=== PATIENT | male | born 1940 | race African-American/Black ===

== ENCOUNTER 2019-11-18 11:49 | Emergency (ER) | payer MEDICARE, OTHER ==
[~2019-11-18] VITALS: Ht 190.5 cm; Wt 85.0 kg
[~2019-11-18 11:49] MED LIST: ASPI-1497 PO; OLME20TA13 PO; TAMS-11 PO
[2019-11-18] MEDS ORDERED: METOCLOPRAMIDE HCL 10MG/2ML VIAL IV ONE (14:30)
[2019-11-18] MEDS ORDERED: DILTIAZEM HCL 5MG/ML 5ML VIAL IV ONE (15:00)
[2019-11-18 15:17] LABS: HEMATOCRIT. 40.4 % (42.0-52.0); HEMOGLOBIN. 13.5 g/dL (14.0-18.0); MEAN CORPUSCULAR HEMOGLOBIN 33.1 pg (28.0-32.0); MEAN CORPUSCULAR VOLUME 98.9 fL (80.0-94.0); MEAN PLATELET VOLUME 9.3 fl (7.4-10.4); PLATELET 236 x1000/uL (130-400); RED BLOOD CELL COUNT 4.09 mill/uL (4.7-6.1); RED CELL DISTRIBUTION WIDTH 14.9 % (11.6-14.6)
[2019-11-18 15:23] LABS: CHLORIDE 95 mEq/L (98-107)
[2019-11-18 16:32] LABS: PLATELET ESTIMATE NORMAL
[2019-11-18 17:20] LABS: PROTHROMBIN TIME 10.5 sec (9.6-11.0)
[2019-11-18 19:10] VITALS: BP 130/65
[2019-11-19] MEDS ORDERED: LOSA1TAB40 PO (22:32)
[2019-11-19] MEDS ORDERED: RIVA20TA PO (22:32)
[2019-11-19] MEDS ORDERED: CARV3.1242 PO (22:32)
[2019-11-19] MEDS ORDERED: SIMV-43 PO (22:32)
== END 2019-11-18 19:22 | disposition left against medical advice (07) ==
LOC: ER 12:02 → EDBEDREQTM 18:17 → EDBEDREQ 18:17 → ER 19:22 → CANBEDREQ 19:41
DX: I48.20 Chronic atrial fibrillation, unspecified (principal); N17.9 Acute kidney failure, unspecified; K92.1 Melena; R11.0 Nausea; R05 Cough; R06.6 Hiccough; Z71.89 Other specified counseling; Z79.01 Long term (current) use of anticoagulants; Z79.82 Long term (current) use of aspirin; Z79.84 Long term (current) use of oral hypoglycemic drugs
CPT/HCPCS: 36415; 71045; 80053; 83880; 84484; 85025; 85610; 85730; 93005; 96374; 96375; 99285; J2765; J3490

== ENCOUNTER 2019-11-19 13:59 | Inpatient (IN) | payer MEDICARE, OTHER ==
[~2019-11-19] VITALS: Ht 190.5 cm; Wt 84.4 kg
[2019-11-19] MEDS ORDERED: SODIUM CHLORIDE 0.9% 1,000 ML IV ONE (16:24)
[2019-11-19 17:01] LABS: HEMATOCRIT. 36.8 % (42.0-52.0); HEMOGLOBIN. 12.3 g/dL (14.0-18.0); MEAN CORPUSCULAR HEMOGLOBIN 32.8 pg (28.0-32.0); MEAN CORPUSCULAR VOLUME 98.6 fL (80.0-94.0); PLATELET 207 x1000/uL (130-400); RED BLOOD CELL COUNT 3.74 mill/uL (4.7-6.1); RED CELL DISTRIBUTION WIDTH 14.8 % (11.6-14.6)
[2019-11-19 17:08] LABS: CHLORIDE 94 mEq/L (98-107)
[2019-11-19 17:15] LABS: PHOSPHORUS 5.4 mg/dL (2.5-4.9)
[2019-11-19 18:20] LABS: PLATELET ESTIMATE NORMAL
[2019-11-19] MEDS ORDERED: SODIUM CHLORIDE 0.9% 1,000 ML IV SCH (19:49)
[2019-11-19] MEDS ORDERED: ONDANSETRON HCL 4MG/2ML INJ IV PRN (20:00)
[2019-11-19 21:30] VITALS: BP 81/54
[2019-11-19 21:35] VITALS: BP 81/54
[2019-11-19 22:00] VITALS: BP 107/52
[2019-11-19] MEDS: SODIUM BICARBONATE 50 MEQ in SODIUM CHLORIDE 0.45% 1,000 ML IV SCH (22:00)
[2019-11-19] MEDS ORDERED: SIMV-43 PO (22:32)
[2019-11-19] MEDS ORDERED: LOSA1TAB40 PO (22:32)
[2019-11-19] MEDS ORDERED: CARV3.1242 PO (22:32)
[2019-11-19] MEDS ORDERED: RIVA20TA PO (22:32)
[2019-11-20] VITALS (12 sets, daily range): BP systolic 86–153; BP diastolic 42–61
[2019-11-20 06:28] LABS: HEMATOCRIT. 31.2 % (42.0-52.0); HEMOGLOBIN. 10.7 g/dL (14.0-18.0); MEAN CORPUSCULAR VOLUME 96.6 fL (80.0-94.0); MEAN PLATELET VOLUME 9.5 fl (7.4-10.4); PLATELET 168 x1000/uL (130-400); RED BLOOD CELL COUNT 3.23 mill/uL (4.7-6.1); RED CELL DISTRIBUTION WIDTH 14.9 % (11.6-14.6)
[2019-11-20 08:02] LABS: CHLORIDE 98 mEq/L (98-107)
[2019-11-20 08:09] LABS: T4 FREE 1.22 ng/dL (0.76-1.46)
[2019-11-20 09:23] LABS: PLATELET ESTIMATE NORMAL
[2019-11-20 09:27] LABS: CLARITY URINE CLOUDY (CLEAR); COLOR URINE YELLOW (YELLOW); KETONES URINE NEGATIVE (NEGATIVE); LEUKOCYTE ESTERASE URINE NEGATIVE (NEGATIVE); NITRITE URINE NEGATIVE (NEGATIVE); OCCULT BLOOD URINE NEGATIVE (NEGATIVE); PH URINE 5.5 (4.5-8.0); PROTEIN URINE TRACE (NEGATIVE); SPECIFIC GRAVITY URINE 1.016 (1.005-1.030); UROBILINOGEN URINE 0.2 E.U./dL (0.2-1.0)
[2019-11-20 10:59] LABS: BG CARBOXYHEMOGLOBIN 0.3 % (0.5-1.5); BG DEOXYHEMOGLOBIN 4.2 % (0.0-5.0); BG FRACTION INSPIRED OXYGEN 21; BG HCO3 ACT 18.2 mmol/L (22.0-26.0); BG METHEMOGLOBIN 0.1 % (0.0-1.5); BG OXYGEN SATURATION 95.8 % (92.0-98.5); BG OXYHEMOGLOBIN 95.4 % (94.0-97.0); BG PCO2 28.5 mmHg (35.0-45.0); BG PH 7.424 (7.350-7.450); BG PO2 84.1 mmHg (75.0-100.0); BG SAMPLE SITE RIGHT RADIAL; BG TOTAL HEMOGLOBIN 11.5 g/dL (12.0-18.0); BG VENT MODE ROOM AIR
[2019-11-20] MEDS: SODIUM BICARBONATE 50 MEQ in SODIUM CHLORIDE 0.45% 1,000 ML IV SCH (11:48)
[2019-11-20 12:09] LABS: CREATINE KINASE 157 IU/L (39-308)
[2019-11-20] MEDS ORDERED: ENOXAPARIN 40MG/0.4ML SYR SUBCUT NR (16:00)
[2019-11-20] MEDS ORDERED: DIGOXIN 500MCG/2ML AMP IV NR (16:15)
[2019-11-20] MEDS: PROPRANOLOL HCL 10MG TABLET PO SCH (21:29)
[2019-11-20] MEDS: PANTOPRAZOLE SODIUM 40 MG/VIAL IV SCH (21:33)
[2019-11-21] VITALS (11 sets, daily range): BP systolic 86–109; BP diastolic 42–60
[2019-11-21] MEDS: SODIUM BICARBONATE 50 MEQ in SODIUM CHLORIDE 0.45% 1,000 ML IV SCH (02:48)
[2019-11-21] MEDS: PROPRANOLOL HCL 10MG TABLET PO SCH ×3 (06:00→22:13)
[2019-11-21 07:23] LABS: HEMOGLOBIN. 10.8 g/dL (14.0-18.0); MEAN CORPUSCULAR HEMOGLOBIN 33.8 pg (28.0-32.0); MEAN CORPUSCULAR VOLUME 97.2 fL (80.0-94.0); MEAN PLATELET VOLUME 9.5 fl (7.4-10.4); PLATELET 152 x1000/uL (130-400); RED BLOOD CELL COUNT 3.19 mill/uL (4.7-6.1); RED CELL DISTRIBUTION WIDTH 14.8 % (11.6-14.6)
[2019-11-21 07:58] LABS: PARTIAL THROMBOPLASTIN TIME 35.6 sec (23.4-31.0); PROTHROMBIN TIME 11.3 sec (9.6-11.0)
[2019-11-21] MEDS: PANTOPRAZOLE SODIUM 40 MG/VIAL IV SCH ×2 (08:41→22:13)
[2019-11-21] MEDS ORDERED: BACTERIOSTATIC SODIUM CHLORIDE 0.9% 30ML VIAL IJ ONE (09:45)
[2019-11-21 11:01] LABS: CHLORIDE 103 mEq/L (98-107)
[2019-11-21 13:02] LABS: PLATELET ESTIMATE NORMAL
[2019-11-21] MEDS ORDERED: MIDAZOLAM HCL 5 MG/5 ML VIAL ONE (14:44)
[2019-11-21] MEDS ORDERED: FENTANYL CITRATE/PF 50MCG/ML 2ML VIAL ONE (14:45)
[2019-11-21] MEDS ORDERED: MIDAZOLAM HCL 5 MG/5 ML VIAL IV NR (14:46)
[2019-11-21] MEDS ORDERED: DIAZEPAM 5 MG/ML 2ML CPJ IV NR (14:57)
[2019-11-21] MEDS ORDERED: DIAZEPAM 5 MG/ML 2ML CPJ ONE (14:58)
[2019-11-21] MEDS: AMIODARONE HCL 200 MG TABLET PO SCH ×2 (18:02→22:13)
[2019-11-21] MEDS: SODIUM CHLORIDE 0.45% 1,000 ML IV SCH (18:02)
[2019-11-22] VITALS (14 sets, daily range): BP systolic 89–152; BP diastolic 35–98
[2019-11-22] MEDS: AMIODARONE HCL 200 MG TABLET PO SCH ×3 (06:16→22:17)
[2019-11-22] MEDS: PROPRANOLOL HCL 10MG TABLET PO SCH ×3 (06:17→22:17)
[2019-11-22] MEDS: SODIUM CHLORIDE 0.45% 1,000 ML IV SCH ×2 (06:24→19:45)
[2019-11-22 06:52] LABS: HEMATOCRIT. 28.5 % (42.0-52.0); HEMOGLOBIN. 9.6 g/dL (14.0-18.0); MEAN CORPUSCULAR HEMOGLOBIN 33.1 pg (28.0-32.0); MEAN PLATELET VOLUME 9.4 fl (7.4-10.4); PLATELET 144 x1000/uL (130-400); RED BLOOD CELL COUNT 2.91 mill/uL (4.7-6.1); RED CELL DISTRIBUTION WIDTH 15.2 % (11.6-14.6)
[2019-11-22 10:13] LABS: PLATELET ESTIMATE NORMAL
[2019-11-22] MEDS: PANTOPRAZOLE SODIUM 40 MG/VIAL IV SCH (10:18)
[2019-11-22] MEDS: SUCRALFATE 1 G/10 ML UDC PO SCH ×2 (12:55→18:37)
[2019-11-22 15:10] LABS: ANTI-NUCLEAR ANTIBODIES DIRECT Negative (Negative)
[2019-11-22] MEDS: PANTOPRAZOLE 40MG DR TABLET PO SCH (20:29)
[2019-11-23] VITALS (9 sets, daily range): BP systolic 105–146; BP diastolic 54–98
[2019-11-23] MEDS: SUCRALFATE 1 G/10 ML UDC PO SCH ×3 (00:21→12:00)
[2019-11-23] MEDS: PROPRANOLOL HCL 10MG TABLET PO SCH (06:11)
[2019-11-23] MEDS: PANTOPRAZOLE 40MG DR TABLET PO SCH (06:11)
[2019-11-23] MEDS: AMIODARONE HCL 200 MG TABLET PO SCH (06:11)
[2019-11-23] MEDS: SODIUM CHLORIDE 0.45% 1,000 ML IV SCH (10:43)
[2019-11-23] MEDS ORDERED: PROP10TA10 GT (12:57)
[2019-11-23] MEDS ORDERED: AMIO100T4 PO (12:57)
== END 2019-11-23 15:50 | disposition home or self-care (01) | DRG 377 ==
LOC: ER 13:59 → 3WST 19:36 → EDBEDREQTM 19:40 → EDBEDREQSVC 19:40 → EDBEDREQ 19:40 → ENRESERV 19:46 → 3WST 21:32
PROVIDERS: ADMIT Specialist; ATTEND Specialist
PROC: 0DB78ZX Excision of Stomach, Pylorus, Via Natural or Artificial Opening Endoscopic, Diagnostic (ICD-10-PCS; principal; 2019-11-21)
DX: K26.4 Chronic or unspecified duodenal ulcer with hemorrhage (principal); N17.0 Acute kidney failure with tubular necrosis; I50.22 Chronic systolic (congestive) heart failure; E44.0 Moderate protein-calorie malnutrition; I48.20 Chronic atrial fibrillation, unspecified; I42.9 Cardiomyopathy, unspecified; E87.1 Hypo-osmolality and hyponatremia; D62 Acute posthemorrhagic anemia; K22.10 Ulcer of esophagus without bleeding; I13.0 Hypertensive heart and chronic kidney disease with heart failure and stage 1 through stage 4 chronic kidney disease, or unspecified chronic kidney disease; E78.5 Hyperlipidemia, unspecified; E86.9 Volume depletion, unspecified; I95.9 Hypotension, unspecified; F17.290 Nicotine dependence, other tobacco product, uncomplicated; K22.2 Esophageal obstruction; K44.9 Diaphragmatic hernia without obstruction or gangrene; R00.0 Tachycardia, unspecified; K52.9 Noninfective gastroenteritis and colitis, unspecified; N40.0 Benign prostatic hyperplasia without lower urinary tract symptoms; N18.9 Chronic kidney disease, unspecified; Z96.659 Presence of unspecified artificial knee joint; Z90.49 Acquired absence of other specified parts of digestive tract; I25.2 Old myocardial infarction; Z82.49 Family history of ischemic heart disease and other diseases of the circulatory system; Z79.01 Long term (current) use of anticoagulants; Z68.23 Body mass index [BMI] 23.0-23.9, adult; Z79.899 Other long term (current) drug therapy; Z79.82 Long term (current) use of aspirin; Z71.6 Tobacco abuse counseling; K29.70 Gastritis, unspecified, without bleeding; K29.80 Duodenitis without bleeding
CPT/HCPCS: 36415; 36600; 71045; 76700; 80048; 80053; 80076; 81003; 82375; 82550; 82570; 82805; 83735; 83880; 84100; 84156; 84439; 84443; 84484; 85025; 86038; 86160; 87493; 88305; 88312; 88313; 93005; 93306; 99291; C9113; J1160; J1650; J2250; J2405; J3010; J3490; J7030

== ENCOUNTER 2023-06-17 10:00 | Emergency (ER) | payer OTHER ==
[~2023-06-17] VITALS: Ht 190.5 cm; Wt 89.0 kg
[~2023-06-17 10:00] MED LIST changes: +CARV3.1242 PO; +LOSA1TAB40 PO; +RIVA20TA PO; +SIMV-43 PO
[2023-06-17 10:09] VITALS: O2SAT 99
[2023-06-17] MEDS ORDERED: ONDANSETRON 4MG ODT PO STA (10:10)
[2023-06-17] MEDS ORDERED: MORPHINE SULFATE 4 MG/ML CPJ (NOT FOR IM USE) IV STA (10:10)
[2023-06-17] MEDS ORDERED: SODIUM CHLORIDE 0.9% 1,000 ML IV ONE (10:15)
[2023-06-17 11:03] LABS: BASOPHILS % 0.8 % (0.0-2.0); EOSINOPHILS % 0.1 % (0.0-5.0); HEMATOCRIT. 44.2 % (42.0-52.0); HEMOGLOBIN. 14.5 g/dL (14.0-18.0); LYMPHOCYTES % 21.1 % (20.0-50.0); MEAN CORPUSCULAR HEMOGLOBIN 31.1 pg (28.0-32.0); MEAN CORPUSCULAR HGB CONC 32.8 g/dL (31.0-37.0); MEAN CORPUSCULAR VOLUME 94.9 fL (80.0-94.0); MEAN PLATELET VOLUME 9.1 fl (7.4-10.4); MONOCYTES % 12.7 % (2.0-8.0); NEUTROPHILS % 65.3 % (40.0-76.0); PLATELET 288 x1000/uL (130-400); RED BLOOD CELL COUNT 4.66 mill/uL (4.7-6.1); WHITE BLOOD COUNT 7.6 x1000/uL (4.5-11.0)
[2023-06-17 11:12] LABS: PROTHROMBIN TIME 10.6 sec (9.6-11.0)
[2023-06-17 11:25] LABS: INDEX HEMOLYSI 1 (1-3); INDEX ICTERIC 1 (1-4); INDEX LIPEMIC 1 (1-3)
[2023-06-17 11:35] LABS: ALANINE AMINOTRANSFERASE 22 IU/L (13-61); ALBUMIN 4.2 g/dL (3.4-5.0); ASPARTATE AMINOTRANSFERASE 25 IU/L (15-37); BILIRUBIN TOTAL 0.9 mg/dL (0.1-1.0); CALCIUM 8.9 mg/dL (8.5-10.1); CARBON DIOXIDE 24 mEq/L (21-32); CHLORIDE 100 mEq/L (98-107); CREATININE 3.2 mg/dL (0.6-1.3); GLUCOSE 125 mg/dL (70-105); PROTEIN TOTAL 9.3 g/dL (6.0-8.3); SODIUM 131 mEq/L (136-145); TROPONIN I HIGH SENSITIVITY 18 ng/L (<78); UREA NITROGEN BLOOD 65 mg/dL (7-21)
[2023-06-17] MEDS ORDERED: ONDANSETRON 4MG ODT PO NR (13:41)
[2023-06-17] MEDS ORDERED: ONDA4TAB50 PO (13:46)
[2023-06-17 17:00] VITALS: BP 140/74; PULSE 65; RESP 20; TEMP 97.8
== END 2023-06-17 17:05 | disposition home or self-care (01) ==
LOC: ER 10:26
DX: R10.9 Unspecified abdominal pain (principal); I48.91 Unspecified atrial fibrillation; E78.00 Pure hypercholesterolemia, unspecified; I10 Essential (primary) hypertension; Z79.899 Other long term (current) drug therapy
CPT/HCPCS: 99284; 74176; 80053; 83690; 85025; 85610; 84484; 36415; 93005; Q0162; J7030

== ENCOUNTER 2025-08-24 13:09 | Inpatient (IN) | payer BC, MEDICARE ==
[~2025-08-24] VITALS: Ht 182.9 cm; Wt 88.9 kg
[~2025-08-24 13:09] MED LIST changes: +ONDA4TAB50 PO; -TAMS-11 PO; +TAMS-54 PO
[2025-08-24 13:18] VITALS: O2SAT 97
[2025-08-24 14:23] LABS: BASOPHILS % 0.3 % (0.0-2.0); EOSINOPHILS % 0.3 % (0.0-5.0); HEMATOCRIT. 37.6 % (42.0-52.0); HEMOGLOBIN. 12.6 g/dL (14.0-18.0); LYMPHOCYTES % 10.6 % (20.0-50.0); MEAN PLATELET VOLUME 9.0 fl (7.4-10.4); MONOCYTES % 9.2 % (2.0-8.0); NEUTROPHILS % 79.6 % (40.0-76.0); PLATELET 320 x1000/uL (130-400); RED BLOOD CELL COUNT 3.98 mill/uL (4.7-6.1); RED CELL DISTRIBUTION WIDTH 13.4 % (11.6-14.6)
[2025-08-24] MEDS: SODIUM CHLORIDE 0.9% 1,000 ML IV ONE (14:28)
[2025-08-24 14:49] LABS: INR 1.0
[2025-08-24 14:50] LABS: CREATININE 2.8 mg/dL (0.6-1.3); UREA NITROGEN BLOOD 87 mg/dL (9-23)
[2025-08-24 14:51] LABS: PROTEIN TOTAL 7.3 g/dL (6.0-8.3)
[2025-08-24 14:52] LABS: ASPARTATE AMINOTRANSFERASE 9 IU/L (<34); BILIRUBIN DIRECT 0.3 mg/dL (<=3.0); BILIRUBIN TOTAL 0.9 mg/dL (0.1-1.0); TROPONIN I HIGH SENSITIVITY 11 ng/L (3.0-53)
[2025-08-24 16:00] LABS: INFLUENZA TYPE A Presumptive Negative (Pres. Neg.)
[2025-08-24 16:01] LABS: INFLUENZA TYPE B Presumptive Negative (Pres. Neg.); RESPIRATORY SYNCYTIAL VIRUS Not Detected (Not Detectd)
[2025-08-24 16:19] LABS: TROPONIN I HIGH SENSITIVITY 11 ng/L (3.0-53)
[2025-08-24] MEDS: CALCIUM CHLORIDE 1GM/10ML SYR IV ONE (17:09)
[2025-08-24] MEDS: DEXTROSE 50% WATER 50ML SYRINGE IV ONE (17:20)
[2025-08-24] MEDS: INSULIN REGULAR (HUMULIN R) 1000UNITS/10ML VIAL IV ONE (17:21)
[2025-08-24] MEDS ORDERED: ACETAMINOPHEN 325MG TABLET PO PRN (17:30)
[2025-08-24] MEDS ORDERED: ONDANSETRON HCL 4MG/2ML INJ IV PRN (17:30)
[2025-08-24] MEDS ORDERED: SODIUM CHLORIDE 0.45% 1,000 ML IV SCH (17:30)
[2025-08-24] MEDS ORDERED: HYDROCODONE/ACETAMINOPHEN 5/325MG TABLET PO PRN (17:30)
[2025-08-24 17:50] VITALS: BP 106/63; PULSE 95; RESP 22; TEMP 37.2; O2SAT 100
[2025-08-24 17:51] LABS: CLARITY URINE CLEAR (CLEAR); COLOR URINE YELLOW (YELLOW); GLUCOSE URINE NEGATIVE (NEGATIVE); KETONES URINE NEGATIVE (NEGATIVE); LEUKOCYTE ESTERASE URINE NEGATIVE (NEGATIVE); NITRITE URINE NEGATIVE (NEGATIVE); OCCULT BLOOD URINE NEGATIVE (NEGATIVE); PH URINE 5.5 (4.5-8.0); PROTEIN URINE NEGATIVE (NEGATIVE); SPECIFIC GRAVITY URINE 1.017 (1.005-1.030); UROBILINOGEN URINE 0.2 E.U./dL (0.2-1.0)
[2025-08-24 20:00] VITALS: BP 120/58; PULSE 79; RESP 18; TEMP 36.1; O2SAT 100
[2025-08-24] MEDS: ASPIRIN 81MG EC TABLET PO SCH (20:11)
[2025-08-24] MEDS: ENOXAPARIN 30MG/0.3ML SYR SUBCUT SCH (22:19)
[2025-08-25] VITALS: BP 123/59; PULSE 78; RESP 18; TEMP 36.2; O2SAT 99
[2025-08-25 00:54] LABS: CREATINE KINASE MB FRACTION 0.9 ng/mL (0.5-3.6)
[2025-08-25 01:00] LABS: TROPONIN I HIGH SENSITIVITY 13 ng/L (3.0-53)
[2025-08-25 04:00] VITALS: BP 120/63; PULSE 80; RESP 18; TEMP 36.4; O2SAT 99
[2025-08-25 04:38] VITALS: BP 124/61; PULSE 80; RESP 16; TEMP 36.3624
[2025-08-25 06:28] LABS: BASOPHILS % 0.6 % (0.0-2.0); EOSINOPHILS % 1.9 % (0.0-5.0); HEMATOCRIT. 39.3 % (42.0-52.0); HEMOGLOBIN. 12.8 g/dL (14.0-18.0); LYMPHOCYTES % 23.8 % (20.0-50.0); MEAN PLATELET VOLUME 9.6 fl (7.4-10.4); MONOCYTES % 10.2 % (2.0-8.0); NEUTROPHILS % 63.5 % (40.0-76.0); PLATELET 312 x1000/uL (130-400); RED BLOOD CELL COUNT 4.15 mill/uL (4.7-6.1); RED CELL DISTRIBUTION WIDTH 13.1 % (11.6-14.6)
[2025-08-25 06:53] LABS: CREATINE KINASE MB FRACTION < 0.5 ng/mL (0.5-3.6)
[2025-08-25 06:56] LABS: TROPONIN I HIGH SENSITIVITY 13 ng/L (3.0-53)
[2025-08-25 06:58] LABS: CREATININE 2.2 mg/dL (0.6-1.3)
[2025-08-25 06:59] LABS: UREA NITROGEN BLOOD 65.0 mg/dL (9-23)
[2025-08-25 08:00] VITALS: BP 110/70; PULSE 80; RESP 18; TEMP 36.7; O2SAT 100
[2025-08-25] MEDS: TAMSULOSIN HCL 0.4MG SR CAPSULE PO SCH (09:29)
[2025-08-25 12:00] VITALS: BP 130/80; PULSE 78; RESP 18; TEMP 37; O2SAT 100
[2025-08-25 16:57] VITALS: BP 130/75; PULSE 80; RESP 16; TEMP 98
[2025-08-25] MEDS ORDERED: RIVAROXABAN 15 MG TABLET PO SCH (17:00)
[2025-09-13] MEDS ORDERED: PANT40SU MT (11:48)
[2025-09-13] MEDS ORDERED: SUCR1TAB PO (11:48)
== END 2025-08-25 18:07 | disposition home or self-care (01) | DRG 392 ==
LOC: ER 13:09 → 8WST 16:46 → EDBEDREQTM 16:52 → EDBEDREQ 16:52 → ENRESERV 17:05 → CANRESERV 17:05 → ENRESERV 17:13
PROVIDERS: ADMIT Internal Medicine; ATTEND Internal Medicine
DX: K52.9 Noninfective gastroenteritis and colitis, unspecified (principal); I13.0 Hypertensive heart and chronic kidney disease with heart failure and stage 1 through stage 4 chronic kidney disease, or unspecified chronic kidney disease; N17.9 Acute kidney failure, unspecified; E86.0 Dehydration; I48.0 Paroxysmal atrial fibrillation; E78.00 Pure hypercholesterolemia, unspecified; Z79.01 Long term (current) use of anticoagulants; N18.32 Chronic kidney disease, stage 3b; N40.0 Benign prostatic hyperplasia without lower urinary tract symptoms; E87.5 Hyperkalemia; I25.10 Atherosclerotic heart disease of native coronary artery without angina pectoris; Z96.659 Presence of unspecified artificial knee joint; Z79.82 Long term (current) use of aspirin; Z79.899 Other long term (current) drug therapy; I10 Essential (primary) hypertension
CPT/HCPCS: 36415; 71045; 76770; 80048; 80076; 81003; 82550; 82553; 82962; 83880; 84484; 85025; 87420; 87804; 93005; 99291; A4606; J1650; J1815; J3490; J7030

== ENCOUNTER 2025-09-08 05:57 | Inpatient (IN) | payer BC, MEDICARE ==
[~2025-09-08] VITALS: Ht 188 cm; Wt 89.0 kg
[~2025-09-08 05:57] MED LIST changes: -LOSA1TAB40 PO; -OLME20TA13 PO; -ONDA4TAB50 PO
[2025-09-08 06:13] VITALS: O2SAT 98
[2025-09-08] MEDS: SODIUM CHLORIDE 0.9% (SEPSIS BOLUS) IV ONE (06:38)
[2025-09-08] MEDS: PIPERACILLIN/TAZO 3.375G/50ML 50 ML IV ONE (06:40)
[2025-09-08 06:52] LABS: BASOPHILS % 0.5 % (0.0-2.0); EOSINOPHILS % 0.1 % (0.0-5.0); HEMATOCRIT. 32.8 % (42.0-52.0); HEMOGLOBIN. 10.7 g/dL (14.0-18.0); LYMPHOCYTES % 9.7 % (20.0-50.0); MEAN PLATELET VOLUME 8.4 fl (7.4-10.4); MONOCYTES % 6.7 % (2.0-8.0); NEUTROPHILS % 83.0 % (40.0-76.0); PLATELET 289 x1000/uL (130-400); RED BLOOD CELL COUNT 3.41 mill/uL (4.7-6.1); RED CELL DISTRIBUTION WIDTH 13.7 % (11.6-14.6)
[2025-09-08 07:10] LABS: UREA NITROGEN BLOOD 87 mg/dL (9-23)
[2025-09-08 07:11] LABS: PROTEIN TOTAL 7.2 g/dL (6.0-8.3)
[2025-09-08 07:12] LABS: ASPARTATE AMINOTRANSFERASE 10 IU/L (<34); BILIRUBIN DIRECT 0.1 mg/dL (<=3.0); BILIRUBIN TOTAL 0.5 mg/dL (0.1-1.0)
[2025-09-08 07:13] LABS: CREATININE 6.5 mg/dL (0.6-1.3)
[2025-09-08] MEDS: VANCOMYCIN 1G PREMIX 200 ML IV ONE (07:19)
[2025-09-08] MEDS: SODIUM CHLORIDE 0.9% 1,000 ML IV ONE (07:25)
[2025-09-08 07:34] LABS: INR 1.0
[2025-09-08] MEDS ORDERED: IPRATROPIUM/ALBUTEROL 0.5-3(2.5)MG/3ML NEB NEB PRN (09:30)
[2025-09-08] MEDS ORDERED: DOCUSATE SODIUM 100MG CAPSULE PO PRN (09:30)
[2025-09-08] MEDS ORDERED: ACETAMINOPHEN 325MG TABLET PO PRN ×2 (09:30)
[2025-09-08 09:56] VITALS: BP 141/60; PULSE 86; RESP 14; TEMP 36.5292
[2025-09-08] MEDS: DEXT 5%/0.9% NACL 1,000 ML IV SCH (11:41)
[2025-09-08 12:00] VITALS: BP 111/56; PULSE 86; RESP 21; TEMP 36.5; O2SAT 97
[2025-09-08 16:00] VITALS: BP_SYST 107; BP_SYST 108; BP_DIAS 49; BP_DIAS 9; PULSE 78; PULSE 85; RESP 15; RESP 18; TEMP 36.6; TEMP 36.7; O2SAT 98; O2SAT 99
[2025-09-08 16:44] LABS: CLARITY URINE CLOUDY (CLEAR); COLOR URINE YELLOW (YELLOW); GLUCOSE URINE NEGATIVE (NEGATIVE); KETONES URINE NEGATIVE (NEGATIVE); LEUKOCYTE ESTERASE URINE NEGATIVE (NEGATIVE); NITRITE URINE NEGATIVE (NEGATIVE); OCCULT BLOOD URINE TRACE (NEGATIVE); PH URINE 5.0 (4.5-8.0); PROTEIN URINE 1+ (NEGATIVE); SPECIFIC GRAVITY URINE 1.015 (1.005-1.030); UROBILINOGEN URINE 0.2 E.U./dL (0.2-1.0)
[2025-09-08 16:57] LABS: SQUAMOUS EPITHELIAL CELL URINE 2+ /lpf (RARE/1+)
[2025-09-08 16:58] LABS: BACTERIA URINE 2+
[2025-09-08] MEDS ORDERED: CHLORPROMAZINE HCL 25 MG TABLET PO PRN (18:45)
[2025-09-08] MEDS: ONDANSETRON HCL 4MG/2ML INJ IV PRN (19:34)
[2025-09-08 20:00] VITALS: BP 157/78; PULSE 96; RESP 16; TEMP 36.4; O2SAT 99
[2025-09-08] MEDS ORDERED: AMLO5TAB88 PO (20:36)
[2025-09-08] MEDS ORDERED: HYDR12.54 PO (20:36)
[2025-09-08] MEDS ORDERED: PROP10TA10 PO (20:36)
[2025-09-08] MEDS ORDERED: LOSA50TA41 MT (20:36)
[2025-09-08] MEDS: APIXABAN 2.5 MG TABLET PO SCH (22:16)
[2025-09-09] VITALS (7 sets, daily range): BP systolic 103–144; BP diastolic 61–120; PULSE 94–108; RESP 15–20; TEMP 36.2–37; O2SAT 97–100
[2025-09-09] MEDS: TAMSULOSIN HCL 0.4MG SR CAPSULE PO SCH (09:00)
[2025-09-09] MEDS ORDERED: RIVAROXABAN 20 MG TABLET PO SCH (09:00)
[2025-09-09] MEDS: ASPIRIN 81MG EC TABLET PO SCH (09:00)
[2025-09-09] MEDS ORDERED: METOCLOPRAMIDE HCL 5MG TABLET PO PRN (10:15)
[2025-09-09] MEDS: CEFTRIAXONE 1GM/50ML 50 ML IV SCH (11:46)
[2025-09-09 13:51] LABS: BASOPHILS % 0.2 % (0.0-2.0); EOSINOPHILS % 0.0 % (0.0-5.0); HEMATOCRIT. 23.7 % (42.0-52.0); HEMOGLOBIN. 7.8 g/dL (14.0-18.0); LYMPHOCYTES % 11.0 % (20.0-50.0); MEAN PLATELET VOLUME 9.2 fl (7.4-10.4); MONOCYTES % 10.8 % (2.0-8.0); NEUTROPHILS % 78.0 % (40.0-76.0); PLATELET 223 x1000/uL (130-400); RED BLOOD CELL COUNT 2.49 mill/uL (4.7-6.1); RED CELL DISTRIBUTION WIDTH 13.4 % (11.6-14.6)
[2025-09-09 14:16] LABS: UREA NITROGEN BLOOD 87.0 mg/dL (9-23)
[2025-09-09 14:22] LABS: CREATININE 2.5 mg/dL (0.6-1.3); T4 FREE 1.23 ng/dL (0.89-1.76)
[2025-09-10] VITALS (10 sets, daily range): BP systolic 117–143; BP diastolic 49–73; PULSE 92–103; RESP 13–30; TEMP 36.3–37.00296; O2SAT 95–100
[2025-09-10] MEDS: DEXT 5%/0.45% NACL 1000ML 1,000 ML IV SCH (12:58)
[2025-09-10] MEDS: PANTOPRAZOLE SODIUM 40 MG/VIAL IV SCH (12:58)
[2025-09-10 15:15] LABS: BASOPHILS % 0.1 % (0.0-2.0); EOSINOPHILS % 0.1 % (0.0-5.0); LYMPHOCYTES % 13.9 % (20.0-50.0); MEAN PLATELET VOLUME 8.7 fl (7.4-10.4); MONOCYTES % 10.3 % (2.0-8.0); NEUTROPHILS % 75.6 % (40.0-76.0); PLATELET 198 x1000/uL (130-400); RED BLOOD CELL COUNT 1.87 mill/uL (4.7-6.1); RED CELL DISTRIBUTION WIDTH 13.8 % (11.6-14.6)
[2025-09-10 15:22] LABS: CREATININE 2.0 mg/dL (0.6-1.3)
[2025-09-10 15:23] LABS: HEMOGLOBIN. 5.9 g/dL (14.0-18.0); UREA NITROGEN BLOOD 83.0 mg/dL (9-23)
[2025-09-10 15:24] LABS: HEMATOCRIT. 18.3 % (42.0-52.0)
[2025-09-10 15:30] LABS: FOLIC ACID (FOLATE) SERUM 5.15 ng/mL (>5.38); VITAMIN B12 SERUM 380 pg/mL (211-911)
[2025-09-10] MEDS: SUCRALFATE 1G TABLET PO SCH (18:36)
[2025-09-11] VITALS (15 sets, daily range): BP systolic 120–151; BP diastolic 54–104; PULSE 78–101; RESP 14–22; TEMP 36.2–37.00296; O2SAT 99–100
[2025-09-11 07:19] LABS: HEMATOCRIT. 26.5 % (42.0-52.0); HEMOGLOBIN. 8.8 g/dL (14.0-18.0); MEAN PLATELET VOLUME 8.5 fl (7.4-10.4); PLATELET 180 x1000/uL (130-400); RED BLOOD CELL COUNT 2.88 mill/uL (4.7-6.1); RED CELL DISTRIBUTION WIDTH 15.4 % (11.6-14.6)
[2025-09-11 07:22] LABS: CREATININE 1.6 mg/dL (0.6-1.3)
[2025-09-11 07:23] LABS: UREA NITROGEN BLOOD 64.0 mg/dL (9-23)
[2025-09-11] MEDS: FOLIC ACID/VITAMIN B COMP W-C TABLET PO SCH (08:29)
[2025-09-11 16:36] LABS: EOSINOPHILS % MANUAL 1.0 % (0.0-5.0); LYMPHOCYTES % MANUAL 16.0 % (20.0-50.0); MONOCYTES % MANUAL 17.0 % (2.0-8.0); NEUTROPHILS % MANUAL 66.0 % (45.0-75.0); NUCLEATED RED BLOOD CELLS 2 /100 WBC; PLATELET ESTIMATE NORMAL
[2025-09-12 00:02] VITALS: BP 138/55; PULSE 100; RESP 18; TEMP 36.2; O2SAT 100
[2025-09-12 03:35] LABS: BASOPHILS % 0.1 % (0.0-2.0); EOSINOPHILS % 1.4 % (0.0-5.0); HEMATOCRIT. 23.0 % (42.0-52.0); HEMOGLOBIN. 7.5 g/dL (14.0-18.0); LYMPHOCYTES % 20.0 % (20.0-50.0); MEAN PLATELET VOLUME 7.7 fl (7.4-10.4); MONOCYTES % 12.2 % (2.0-8.0); NEUTROPHILS % 66.3 % (40.0-76.0); PLATELET 206 x1000/uL (130-400); RED BLOOD CELL COUNT 2.52 mill/uL (4.7-6.1); RED CELL DISTRIBUTION WIDTH 15.6 % (11.6-14.6)
[2025-09-12 03:47] LABS: INR 1.0
[2025-09-12 04:02] VITALS: BP 135/58; PULSE 84; RESP 16; TEMP 36.2; O2SAT 99
[2025-09-12 04:33] LABS: CREATININE 1.4 mg/dL (0.6-1.3); UREA NITROGEN BLOOD 36 mg/dL (9-23)
[2025-09-12 04:35] LABS: PHOSPHORUS 1.8 mg/dL (2.5-4.9)
[2025-09-12 08:00] VITALS: BP 142/70; PULSE 88; RESP 17; TEMP 36.8; O2SAT 98
[2025-09-12] MEDS: MAGNESIUM 2 G PREMIX 50 ML IV NR (08:55)
[2025-09-12] MEDS ORDERED: LIDOCAINE HCL 1% 20ML VIAL ONE (11:53)
[2025-09-12] MEDS ORDERED: PROPOFOL 200MG/20ML VIAL IV ONE ×2 (11:53→12:04)
[2025-09-12 13:50] VITALS: BP 149/78; PULSE 103; RESP 23; TEMP 37.1; O2SAT 100
[2025-09-12] MEDS: POTASSIUM PHOSPHATE 20 MMOL in DEXT 5% WATER 243.3333 ML IV NR (14:34)
[2025-09-12 16:00] VITALS: BP 123/78; PULSE 95; RESP 20; TEMP 36.8; O2SAT 98
[2025-09-12 20:00] VITALS: BP 127/63; PULSE 92; RESP 20; TEMP 36.8; O2SAT 98
[2025-09-13] VITALS: BP 137/79; PULSE 84; RESP 14; TEMP 36.4; O2SAT 97
[2025-09-13 04:00] VITALS: BP 129/65; PULSE 92; RESP 22; TEMP 37; O2SAT 96
[2025-09-13 08:00] VITALS: BP 128/63; PULSE 93; RESP 19; TEMP 36.8; O2SAT 99
[2025-09-13] MEDS ORDERED: PANT40SU MT (11:48)
[2025-09-13] MEDS ORDERED: SUCR1TAB PO (11:48)
[2025-09-13 12:00] VITALS: BP 128/72; PULSE 95; RESP 18; TEMP 36.9; O2SAT 98
[2025-09-13 12:50] LABS: BASOPHILS % 0.2 % (0.0-2.0); EOSINOPHILS % 3.9 % (0.0-5.0); HEMATOCRIT. 22.9 % (42.0-52.0); HEMOGLOBIN. 7.5 g/dL (14.0-18.0); LYMPHOCYTES % 19.3 % (20.0-50.0); MEAN PLATELET VOLUME 8.1 fl (7.4-10.4); MONOCYTES % 12.7 % (2.0-8.0); NEUTROPHILS % 63.9 % (40.0-76.0); PLATELET 227 x1000/uL (130-400); RED BLOOD CELL COUNT 2.38 mill/uL (4.7-6.1); RED CELL DISTRIBUTION WIDTH 15.7 % (11.6-14.6)
[2025-09-13 13:24] LABS: CREATININE 1.3 mg/dL (0.6-1.3)
[2025-09-13 13:25] LABS: UREA NITROGEN BLOOD 19 mg/dL (9-23)
[2025-09-13 13:27] LABS: PHOSPHORUS 1.7 mg/dL (2.5-4.9)
[2025-09-13 16:00] VITALS: BP 124/62; PULSE 82; RESP 18; TEMP 36.7; O2SAT 98
[2025-09-13 20:00] VITALS: BP 116/53; PULSE 94; RESP 17; TEMP 36.6; O2SAT 99
[2025-09-14] VITALS: BP 126/62; PULSE 90; RESP 22; TEMP 37.3; O2SAT 99
[2025-09-14 04:00] VITALS: BP 115/57; PULSE 100; RESP 21; TEMP 37; O2SAT 100
[2025-09-14 08:00] VITALS: BP 119/62; PULSE 100; RESP 18; TEMP 37.2; O2SAT 99
[2025-09-14 08:11] LABS: CREATININE 1.2 mg/dL (0.6-1.3); HEMATOCRIT. 21.7 % (42.0-52.0); HEMOGLOBIN. 7.2 g/dL (14.0-18.0); MEAN PLATELET VOLUME 8.2 fl (7.4-10.4); PLATELET 230 x1000/uL (130-400); RED BLOOD CELL COUNT 2.29 mill/uL (4.7-6.1); RED CELL DISTRIBUTION WIDTH 15.5 % (11.6-14.6)
[2025-09-14 08:12] LABS: UREA NITROGEN BLOOD 12 mg/dL (9-23)
[2025-09-14 12:00] VITALS: BP 126/67; PULSE 99; RESP 23; TEMP 37.1; O2SAT 100
[2025-09-14 12:23] LABS: PHOSPHORUS 1.8 mg/dL (2.5-4.9)
[2025-09-14] MEDS: MAGNESIUM 1 G PREMIX 100 ML IV SCH (13:00)
[2025-09-14 16:00] VITALS: BP 120/60; PULSE 92; RESP 24; TEMP 36.7; O2SAT 99
[2025-09-14 17:52] VITALS: BP 120/60; PULSE 89; RESP 15; TEMP 98.1
[2025-09-15 20:58] LABS: EOSINOPHILS % MANUAL 4.0 % (0.0-5.0); LYMPHOCYTES % MANUAL 7.0 % (20.0-50.0); MONOCYTES % MANUAL 19.0 % (2.0-8.0); NEUTROPHILS % MANUAL 70.0 % (45.0-75.0); NUCLEATED RED BLOOD CELLS 1 /100 WBC; PLATELET ESTIMATE NORMAL
== END 2025-09-14 19:30 | disposition home or self-care (01) | DRG 380 ==
LOC: ER 05:57 → 3WST 07:45 → EDBEDREQTM 07:50 → EDBEDREQ 07:50 → ENRESERV 08:32
PROVIDERS: ADMIT Internal Medicine; ATTEND Internal Medicine
PROC: 30233N1 Transfusion of Nonautologous Red Blood Cells into Peripheral Vein, Percutaneous Approach (ICD-10-PCS; 2025-09-10)
PROC: 0DB58ZX Excision of Esophagus, Via Natural or Artificial Opening Endoscopic, Diagnostic (ICD-10-PCS; principal; 2025-09-12)
PROC: 0DB78ZX Excision of Stomach, Pylorus, Via Natural or Artificial Opening Endoscopic, Diagnostic (ICD-10-PCS; 2025-09-12)
PROC: 0W3P8ZZ Control Bleeding in Gastrointestinal Tract, Via Natural or Artificial Opening Endoscopic (ICD-10-PCS; 2025-09-12)
DX: K22.11 Ulcer of esophagus with bleeding (principal); N17.0 Acute kidney failure with tubular necrosis; N18.6 End stage renal disease; I13.2 Hypertensive heart and chronic kidney disease with heart failure and with stage 5 chronic kidney disease, or end stage renal disease; E87.0 Hyperosmolality and hypernatremia; K26.4 Chronic or unspecified duodenal ulcer with hemorrhage; N39.0 Urinary tract infection, site not specified; Z99.2 Dependence on renal dialysis; D64.9 Anemia, unspecified; E78.5 Hyperlipidemia, unspecified; I25.10 Atherosclerotic heart disease of native coronary artery without angina pectoris; I48.0 Paroxysmal atrial fibrillation; R63.0 Anorexia; K44.9 Diaphragmatic hernia without obstruction or gangrene; F17.210 Nicotine dependence, cigarettes, uncomplicated; E53.8 Deficiency of other specified B group vitamins; I50.9 Heart failure, unspecified; N40.0 Benign prostatic hyperplasia without lower urinary tract symptoms; Z87.19 Personal history of other diseases of the digestive system; E61.1 Iron deficiency; Z68.25 Body mass index [BMI] 25.0-25.9, adult
CPT/HCPCS: 36415; 71045; 74176; 76705; 76770; 80048; 80076; 81003; 82270; 82607; 82728; 82746; 83540; 83550; 83605; 83735; 84100; 84145; 84439; 84443; 85025; 85044; 86850; 86900; 86920; 87015; 87045; 87427; 87449; 87493; 88305; 93005; 96365; 99285; A4606; J0696; J2003; J2405; J2470; J2543; J2704; J3373; J3475; J3490; J7030; J7042; J7060; P9016